=== PATIENT | female | born 1955 | race Caucasian/White ===

== ENCOUNTER 2018-11-18 00:32 | Emergency (ER) | payer SELFPAY ==
[2018-11-18] MEDS ORDERED: DIAZEPAM INJ 10 MG/2 ML DISP.SYRIN IM ONE (00:37)
[2018-11-18] MEDS ORDERED: KETOROLAC TROMETHAMINE INJ/PF 30 MG/1 ML SDV IM ONE (00:37)
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
[2018-11-18 02:42] VITALS: BP 139/63
== END 2018-11-18 02:40 | disposition home or self-care (01) ==
LOC: ER 00:32
DX: M54.5 Low back pain (principal); Y04.0XXA Assault by unarmed brawl or fight, initial encounter; Y92.89 Other specified places as the place of occurrence of the external cause; F17.200 Nicotine dependence, unspecified, uncomplicated; I10 Essential (primary) hypertension; J44.9 Chronic obstructive pulmonary disease, unspecified; Z88.6 Allergy status to analgesic agent; Z90.49 Acquired absence of other specified parts of digestive tract; Z90.710 Acquired absence of both cervix and uterus
CPT/HCPCS: 99283; 72170; J3360; J1885

== ENCOUNTER 2019-01-29 16:41 | Emergency (ER) | payer SELFPAY ==
--- NOTE | 2019-01-29 17:09 | RADIOLOGY REPORT (SQ) ---
EXAM DESCRIPTION: WRIST RIGHT 3 VIEWS COMPLETED DATE/TIME: 01/29/2019 4:54 pm REASON FOR STUDY: Fell, injured R wrist, swollen, pain+ COMPARISON: None. NUMBER OF VIEWS: Three views. TECHNIQUE: AP, lateral, and oblique radiographic images acquired of the right wrist. LIMITATIONS: None. FINDINGS: MINERALIZATION: Normal. BONES: Comminuted acute distal right radius fracture with intra-articular extension into the radiocar pal joint. Dorsal angulation of the distal fracture fragments. Carpal bones, distal ulna intact. SOFT TISSUES: Diffuse soft tissue swelling. No foreign body. OTHER: No other significant finding. IMPRESSION: Comminuted acute distal right radius fracture with intra-articular extension into the ra diocarpal joint. Dorsal angulation of the distal fracture fragments TECHNICAL DOCUMENTATION: JOB ID: [id number] [employer]- All Rights Reserved Reading location - IP/workstation name: [email or web address]
[2019-01-29] MEDS ORDERED: ACETAMINOPHEN 325 MG TABLET PO ONE (17:26)
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
[2019-01-29] MEDS ORDERED: FENTANYL CITRATE INJ/PF 100 MCG/2 ML AMPUL IV ONE (18:47)
[2019-01-29] MEDS ORDERED: BUPIVACAINE HCL 0.5 % INJ/PF 30 ML SDV INJ ONE (18:47)
[2019-01-29] MEDS ORDERED: LIDOCAINE 1% INJ-PF (10 MG/ML) 30 ML SDV INJ ONE (18:47)
[2019-01-29] MEDS ORDERED: HYDROCODONE/ACETAMINOPHEN 5-325 MG (6 TAB/ER DISP) PO PRN (20:36)
--- NOTE | 2019-01-29 20:51 | ER Document Report ---
Entered by ANIL LANDRUM SCRIBE 01/29/19 1821 Acting as scribe for:MAILE KHALIL DO ED Medical Screen (RME) - General Chief Complaint: Wrist Injury Stated Complaint: RIGHT HAND INJURY Time Seen by Provider: 01/29/19 17:47 Primary Care Provider: TEX MCDONOUGH DO [ACTIVE STAFF] - Follow up as needed Mode of Arrival: Ambulatory Information source: Patient Notes: Patient is a 63-year-old female presenting to the emergency department complaining of right wrist pain onset today. Patient states that she tripped over her dog and proceeded to land with her hands outstretched. She also complains of some lightheadedness due to the pain. She denies any head trauma or loss of consciousness. I have greeted and performed a rapid initial assessment of the patient. A comprehensive ED assessment and evaluation of the patient, analysis of test results, and completion of the medical decision making process will be conducted by additional ED providers. GENERAL: Alert, interacts well. No acute distress. HEAD: Normocephalic, atraumatic. EYES: Pupils equal, round, and reactive to light. Extraocular movements intact. ENT: Oral mucosa moist, tongue midline. NECK: Full range of motion. Supple. Trachea midline. LUNGS: No respiratory distress. HEART: Regular rate and rhythm. No murmurs, gallops, or rubs. EXTREMITIES: Moves all 4 extremities spontaneously. Obvious deformity and swelling to the distal radius and ulna right wrist, tender to palpation, ROM of thumb limited due to pain. Able to move right thumb. right radial and ulnar pulses 2+. NEUROLOGICAL: Alert and oriented x3. Normal speech. PSYCH: Normal affect, normal mood. SKIN: Warm, dry, normal turgor. No rashes or lesions noted. TRAVEL OUTSIDE OF THE [place] IN LAST 30 DAYS: No - Related Data Allergies/Adverse Reactions: codeine [Codeine] Allergy (Verified 01/29/19 18:22) Past Medical History - Past Medical History Cardiac Medical History: Reports: Hx Hypertension Pulmonary Medical History: Reports: Hx Asthma, Hx COPD Renal/ Medical History: Denies: Hx Peritoneal Dialysis Past Surgical History: Reports: Hx Cholecystectomy, Hx Hysterectomy, Hx Tubal Ligation Physical Exam - Vital signs Vitals: Temp Pulse Resp BP Pulse Ox 98.2 F 72 18 155/78 H 98 01/29/19 16:48 01/29/19 16:48 01/29/19 16:48 01/29/19 16:48 01/29/19 16:48 Course - Vital Signs Vital signs: Temp Pulse Resp BP Pulse Ox 98.2 F 72 17 162/83 H 98 01/29/19 16:48 01/29/19 16:48 01/29/19 18:20 01/29/19 18:20 01/29/19 18:20 Doctor's Discharge - Discharge Clinical Impression: Fracture of right distal radius Condition: Good Disposition: HOME, SELF-CARE Instructions: Fractured Radius ([facility]) Additional Instructions: You have been evaluated in the Emergency Department for pain in the right wrist that is due to a broken bone. While here, you had x-rays that showed the fracture and you were subsequently given pain medications and had a splint applied to her right arm. It is now safe to be discharged home. Please follow- up with both your primary physician as well as an orthopedic surgeon as instructed in 1 week to discuss possible surgery. Return to the Emergency Department if you experience worsening pain uncontrolled with medications, numbness/tingling of your fingers, or any other concerning symptoms. Prescriptions: Oxycodone HCl/Acetaminophen [Percocet 5-325 mg Tablet] 1 tab PO Q6HP PRN #20 tablet PRN Reason: For Pain Referrals: TEX MCDONOUGH DO [ACTIVE STAFF] - Follow up as needed Print Language: Polish I personally performed the services described in the documentation, reviewed and edited the documentation which was dictated to the scribe in my presence, and it accurately records my words and actions.
[2019-01-29 20:55] VITALS: BP 143/76
== END 2019-01-29 20:30 | disposition home or self-care (01) ==
LOC: ER 16:41
DX: S52.501A Unspecified fracture of the lower end of right radius, initial encounter for closed fracture (principal); M25.531 Pain in right wrist; R42 Dizziness and giddiness; W01.0XXA Fall on same level from slipping, tripping and stumbling without subsequent striking against object, initial encounter; I10 Essential (primary) hypertension; J44.9 Chronic obstructive pulmonary disease, unspecified
CPT/HCPCS: 99283; 73110; J3490 ×2; J3010